=== PATIENT | female | born 1950 | race Caucasian/White ===

== ENCOUNTER 2017-01-14 13:49 | Emergency (ER) | payer OTHER ==
[~2017-01-14] VITALS: Ht 163.8 cm; Wt 84.7 kg
[2017-01-14 15:08] LABS: HEMATOCRIT 35.4 % (36.0-46.0); MCH 30.8 PG (29.0-34.0); MCHC 35.6 G/DL (30.0-36.0); MCV 86.6 FL (83-99); PLATELET COUNT 319 K/uL (156-360); RBC DIS.WIDTH-CV 12.9 % (11.8-14.6); RBC DIS.WIDTH-SD 40.2 % (39-53); RED BLOOD COUNT 4.09 M/uL (3.80-5.20); WHITE BLOOD COUNT 8.6 K/uL (4.1-10.2)
[2017-01-14 15:20] LABS: CHLORIDE 104 mEq/L (99-109); POTASSIUM 3.6 mEq/L (3.7-5.4); SODIUM 140 mEq/L (136-147)
[2017-01-14 15:22] LABS: GLUCOSE 188 mg/dL (70-99)
[2017-01-14 15:24] LABS: ANION GAP 12 MEQ/L (2-14); TOTAL BILIRUBIN 0.5 mg/dL (0.0-1.0)
[2017-01-14 15:26] LABS: ALKALINE PHOSPHATASE 74 IU/L (3-129); GFR ESTIMATE (CALCULATED) 20 mL/min/
[2017-01-14 15:27] LABS: UREA NITROGEN (BUN) 38 mg/dL (9-23)
[2017-01-14 20:08] VITALS: BP 138/74
== END 2017-01-14 20:11 | disposition home or self-care (01) ==
LOC: EME 13:49
DX: N28.9 Disorder of kidney and ureter, unspecified (principal)
CPT/HCPCS: 80053; 85027; 99281; 99285; J7030